=== PATIENT | male | born 1975 | race Caucasian/White ===

== ENCOUNTER 2016-11-29 01:10 | Emergency (ER) | payer SELFPAY ==
[~2016-11-29] VITALS: Ht 180.3 cm; Wt 79.4 kg
[2016-11-29 01:18] VITALS: BP 141/74
--- NOTE | 2016-11-29 01:29 | NUR ---
PT TAKEN TO OF
--- NOTE | 2016-11-29 01:38 | NUR ---
Dr. Medina evaluating patient
[2016-11-29] MEDS ORDERED: methylPREDNISolone SS 125 MG in WATER STERILE 2 ML IM ONE (01:45)
[2016-11-29] MEDS ORDERED: CLINDAMYCIN 600 MG/4 ML VIAL IM ONE (01:45)
[2016-11-29] MEDS ORDERED: HYDROcodone/APAP 5/325 MG 1 TAB TAB PO ONE (01:45)
[2016-11-29] MEDS ORDERED: diphenhydrAMINE 50 MG/ML VIAL IM ONE (01:45)
[2016-11-29] MEDS ORDERED: methylPREDNISolone SS 125 MG/2 ML VIAL ONE (02:05)
[2016-11-29 02:40] VITALS: BP 133/63
--- NOTE | 2016-11-29 02:40 | NUR ---
Patient discharged with v/s stable. Written and verbal after care instructions given and explained. Patient alert, oriented and verbalized understanding of instructions. Ambulatory with steady gait. All questions addressed prior to discharge. ID band removed. Patient advised to follow up with PMD. Rx of Motrin, Bactrim DS, and Cleocin given. Patient educated on indication of medication including possible reaction and side effects. Opportunity to ask questions provided and answered.
== END 2016-11-29 02:40 | disposition home or self-care (01) ==
LOC: MED 01:10
DX: L02.214 Cutaneous abscess of groin (principal)
CPT/HCPCS: 96372; 99284; J1200; J2930; J3490

== ENCOUNTER 2017-03-14 08:03 | Emergency (ER) | payer SELFPAY ==
[~2017-03-14] VITALS: Ht 180.3 cm; Wt 81.6 kg
[2017-03-14 09:01] VITALS: BP 152/92
--- NOTE | 2017-03-14 09:05 | NUR ---
PATIENT PRESENTS TO ED WITH C/O LT NOSTRIL, SINUSES/FACE, LT EAR, LT NECK PAIN X 4 DAYS; NOSTRIL ERYTHEMATOUS, WITH GANGRENOUS DISCHARGE ON LT NOSTRIL HX; DENIES RX; DENIES DENIES N/V/D; SKIN IS PINK/WARM/DRY; AAOX4 WITH EVEN AND STEADY GAIT; LUNGS CLEAR BL; HR EVEN AND REGULAR; PT DENIES ANY FEVER, CP, SOB, OR COUGH AT THIS TIME; PATIENT STATES PAIN OF 6/10 AT THIS TIME; VSS; PATIENT POSITIONED FOR COMFORT; ER MD MADE AWARE OF PT STATUS.
[2017-03-14 09:37] VITALS: BP 140/88
--- NOTE | 2017-03-14 09:37 | NUR ---
Patient discharged with v/s stable. Written and verbal after care instructions given and explained. Patient alert, oriented and verbalized understanding of instructions. Ambulatory with steady gait. All questions addressed prior to discharge. ID band removed. Patient advised to follow up with PMD. Rx of CEPHALEXIN, NAPROSYN given. Patient educated on indication of medication including possible reaction and side effects. Opportunity to ask questions provided and answered.
== END 2017-03-14 09:37 | disposition home or self-care (01) ==
LOC: MED 08:03
DX: J34.0 Abscess, furuncle and carbuncle of nose (principal)
CPT/HCPCS: 90471; 90715; 96372; 99283